=== PATIENT | female | born 1955 | race Caucasian/White ===

== ENCOUNTER → 2018-07-17 09:48 | Outpatient (CLI) | payer MEDICARE, SELFPAY ==
--- NOTE | 2018-07-17 09:50 | US_ITS ---
US Arterial Ankle Brachial Ind History: ITS.REASON: Skin Changes, hypertension, diabetes, bilateral rest pain and bilateral claudication ORDERING PHYSICIAN: Suzi Araiza DPM PATIENT AGE: 63 years TECHNIQUE: Segmental pressures obtained of both right and left leg. These are compared to brachial blood pressure to yield index at each level sampled including summary REAL. The data sheets from the procedure are available in PACS FINDINGS Rest study only performed today No prior studies available for comparison. Blood pressures reported are in millimeters mercury. RIGHT LEG REAL = 1.2. RIGHT LEG TBI=0.9 Brachial BP: 108 Thigh BP: 108 Calf BP: 106 Ankle PT: 126 Ankle DP : 123 Digit =96 LEFT LEG REAL = 1.1 LEFT LEG TBI= 0.8 Brachial BPD: 104 Thigh BP: 111 Calf BP: 104 Ankle PT:119 Ankle DP: 95 Digit = 87 Pulses and waveforms: Normal IMPRESSION: The ABIs and the TBIs as reported above are within normal limits. Waveforms and pulses are also unremarkable.
== END ==
PROVIDERS: PCP Family Medicine; Visit Provider Podiatrist
DX: R09.89 Other specified symptoms and signs involving the circulatory and respiratory systems (principal)
CPT/HCPCS: 93922

== ENCOUNTER 2019-01-23 12:20 | Outpatient (CLI) | payer MEDICARE, SELFPAY ==
[2019-01-23 13:00] VITALS: BP 137/85; PULSE 75; RESP 20; O2SAT 94
== END 2019-01-23 13:30 | disposition home or self-care (01) ==
LOC: INF 12:30
PROVIDERS: Visit Provider Nurse Practitioner
DX: J45.909 Unspecified asthma, uncomplicated (principal)
CPT/HCPCS: 96372; J2182

== ENCOUNTER 2019-02-20 13:40 | Outpatient (CLI) | payer MEDICARE, SELFPAY ==
[2019-02-20 14:10] VITALS: BP 109/58; PULSE 74; RESP 22; O2SAT 93
== END 2019-02-20 14:30 | disposition home or self-care (01) ==
LOC: INF 14:01
PROVIDERS: Visit Provider Nurse Practitioner
DX: J45.909 Unspecified asthma, uncomplicated (principal)
CPT/HCPCS: 96372; J2182

== ENCOUNTER 2019-03-19 12:41 | Outpatient (CLI) | payer MEDICARE, SELFPAY ==
[2019-03-19 12:45] VITALS: BP 134/76; PULSE 66; RESP 18; TEMP 36.7; O2SAT 93
== END 2019-03-19 13:00 | disposition home or self-care (01) ==
LOC: INF 12:41
PROVIDERS: Visit Provider Nurse Practitioner
DX: J45.909 Unspecified asthma, uncomplicated (principal)
CPT/HCPCS: 96372; J2182

== ENCOUNTER 2019-04-22 13:23 | Outpatient (CLI) | payer MEDICARE, SELFPAY ==
[2019-04-22 13:40] VITALS: BP 137/79; PULSE 79; RESP 18; TEMP 36.6; O2SAT 97
== END 2019-04-22 14:01 | disposition home or self-care (01) ==
LOC: INF 13:24
PROVIDERS: Visit Provider Nurse Practitioner
DX: J45.909 Unspecified asthma, uncomplicated (principal)
CPT/HCPCS: 96372; J2182

== ENCOUNTER 2019-05-20 12:48 | Outpatient (CLI) | payer MEDICARE, SELFPAY ==
[2019-05-20 13:03] VITALS: BP 126/74; PULSE 84; RESP 18; TEMP 36.6; O2SAT 94
== END 2019-05-20 13:20 | disposition home or self-care (01) ==
LOC: INF 12:48
PROVIDERS: Visit Provider Nurse Practitioner
DX: J45.909 Unspecified asthma, uncomplicated (principal)
CPT/HCPCS: 96372; J2182

== ENCOUNTER 2019-07-23 14:35 | Outpatient (CLI) | payer MEDICARE, SELFPAY ==
[2019-07-23 14:48] VITALS: BP 137/73; PULSE 74; RESP 18; TEMP 36.6; O2SAT 96
== END 2019-07-23 15:07 | disposition home or self-care (01) ==
LOC: INF 14:35
PROVIDERS: Visit Provider Nurse Practitioner
DX: J45.909 Unspecified asthma, uncomplicated (principal)
CPT/HCPCS: 96372; J2182

== ENCOUNTER 2019-08-20 13:10 | Outpatient (CLI) | payer MEDICARE, SELFPAY ==
[2019-08-20 13:24] VITALS: BP 127/71; PULSE 81; RESP 18; TEMP 36.7; O2SAT 92
== END 2019-08-20 13:40 | disposition home or self-care (01) ==
LOC: INF 13:20
PROVIDERS: Visit Provider Nurse Practitioner
DX: J45.909 Unspecified asthma, uncomplicated (principal)
CPT/HCPCS: 96372; J2182

== ENCOUNTER 2019-09-17 13:20 | Outpatient (CLI) | payer MEDICARE, SELFPAY ==
[2019-09-17 13:35] VITALS: BP 127/64; PULSE 66; RESP 20; TEMP 36.6; O2SAT 96
== END 2019-09-17 13:50 | disposition home or self-care (01) ==
LOC: INF 13:21
PROVIDERS: Visit Provider Allergy & Immunology
DX: J45.909 Unspecified asthma, uncomplicated (principal)
CPT/HCPCS: 96372; J2182

== ENCOUNTER 2019-10-15 13:51 | Outpatient (CLI) | payer MEDICARE, SELFPAY ==
[2019-10-15 13:55] VITALS: BP 129/73; PULSE 80; RESP 18; TEMP 37.1; O2SAT 95
== END 2019-10-15 14:20 | disposition home or self-care (01) ==
LOC: INF 13:51
PROVIDERS: Visit Provider Nurse Practitioner
DX: J45.909 Unspecified asthma, uncomplicated (principal)
CPT/HCPCS: 96372; J2182

== ENCOUNTER 2019-11-14 13:05 | Outpatient (CLI) | payer MEDICARE, SELFPAY ==
[2019-11-14 13:45] VITALS: BP 133/75; PULSE 75; RESP 22; O2SAT 95
== END 2019-11-14 13:45 | disposition home or self-care (01) ==
LOC: INF 13:18
PROVIDERS: Visit Provider Allergy & Immunology
DX: J45.909 Unspecified asthma, uncomplicated (principal)
CPT/HCPCS: 96372; J2182

== ENCOUNTER 2019-12-19 12:55 | Outpatient (CLI) | payer MEDICARE, SELFPAY ==
[2019-12-19 14:47] VITALS: BP 133/77; PULSE 95; RESP 20; TEMP 36.9; O2SAT 95
== END 2019-12-19 13:20 | disposition home or self-care (01) ==
LOC: INF 13:01
PROVIDERS: PCP Family Medicine; Visit Provider Allergy & Immunology
DX: J45.909 Unspecified asthma, uncomplicated (principal)
CPT/HCPCS: 96372; J2182

== ENCOUNTER 2020-01-16 12:47 | Outpatient (CLI) | payer MEDICARE, SELFPAY ==
[2020-01-16 13:03] VITALS: BP 130/80; PULSE 101; RESP 22; TEMP 36.7; O2SAT 94
== END 2020-01-16 13:03 | disposition home or self-care (01) ==
LOC: INF 12:51
PROVIDERS: Visit Provider Allergy & Immunology
DX: J45.909 Unspecified asthma, uncomplicated (principal)
CPT/HCPCS: 96372; J2182

== ENCOUNTER 2020-02-13 13:40 | Outpatient (CLI) | payer MEDICARE, SELFPAY ==
[2020-02-13 14:05] VITALS: BP 128/76; PULSE 103; RESP 22; TEMP 36.2; O2SAT 92
== END 2020-02-13 14:05 | disposition home or self-care (01) ==
LOC: INF 13:42
PROVIDERS: Visit Provider Allergy & Immunology
DX: J45.909 Unspecified asthma, uncomplicated (principal)
CPT/HCPCS: 96372; J2182